=== PATIENT | male | born 1950 | race Caucasian/White ===

== ENCOUNTER 2016-11-29 18:04 | Emergency (ER) | payer OTHER ==
[~2016-11-29] VITALS: Ht 170.2 cm; Wt 113.0 kg
[~2016-11-29 18:04] MED LIST: AMITIZA 24 MCG24 MC1 PO; ASPIRIN325 PO; ATACAND8 MG PO; BUSPIRONE HCL10 MG PO; COZAAR 50 MG TA50 M2 PO; DEPO-TESTO200 MG/1 M IM; DILAUDID 2 MG TA2 MG PO; FISH OIL 1,0001 EAC7 PO; FISH OIL 1,001000 M2 PO; FLOMAX0.4 MG PO; FLONASE 0.05%50 MCG NASAL; FUROSEMIDE 20 M20 M1 PO; GABAPENTIN100 MG PO; GLUCOPHAGE500 MG PO; HALCION0.25 MG PO; HYDROCODONE-AP1 EAC6 PO; IMDUR 30 MG TAB30 M1 PO; IMITREX 50 MG T50 MG PO; LASIX 20 MG TAB20 MG PO; LASIX 40 MG TAB40 M2 PO; MELOXICAM7.5 MG PO; NEXIUM 40 MG CA40 M1 PO; NIACIN500 MG PO; NITROGLYCERIN0.4 MG SL; NORCO 5-325 TA1 EACH PO; POTASSIUM20 PO; PRAVACHOL 20 MG20 M1 PO; PRILOSEC 20 MG20 MG PO; PROAIR HFA8.5 GM IH; PROAIR RESPICL90 MCG IH; SPIRIVA18 MCG INH; SYMBICORT160 MCG/4. INH; TOPROL XL200 MG PO; TRAMADOL HCL50 MG PO; VITAMIN D-32000 UNIT PO; ZETIA10 MG PO; ZOCOR40 MG PO
[2016-11-29] MEDS ORDERED: NORCO 5-325 TA1 EACH PO (21:00)
== END 2016-11-29 21:10 | disposition home or self-care (01) ==
LOC: ER 18:04
DX: S80.02XA Contusion of left knee, initial encounter (principal); M19.90 Unspecified osteoarthritis, unspecified site; G47.30 Sleep apnea, unspecified; J44.9 Chronic obstructive pulmonary disease, unspecified; I50.9 Heart failure, unspecified; Z88.8 Allergy status to other drugs, medicaments and biological substances; W01.0XXA Fall on same level from slipping, tripping and stumbling without subsequent striking against object, initial encounter; Y93.89 Activity, other specified; Y92.096 Garden or yard of other non-institutional residence as the place of occurrence of the external cause; Y99.8 Other external cause status

== ENCOUNTER 2017-05-29 13:27 | Inpatient (IN) | payer OTHER ==
[~2017-05-29] VITALS: Ht 170.2 cm; Wt 105.7 kg
--- NOTE | ~2017-05-29 | S ---
[facility] [place] [address] SURGICAL PATH RPT PROCEDURE Name: MARIO ALBERTO CORREA Room #: 215-P DIS IN M.R.#: [id number] Admission: 05/29/17 Date of : 48 Discharge: 05/31/17 Report #: [id number] Path Case #: [id number] PATHOLOGY REPORT COLLECTION DATE: 05/31/2017 RECEIVED DATE: 06/02/2017 SUBMITTING PHYS: Dr. Naveen Terry OTHER PHYS: Dr. Li Cantu SPECIMEN(S) RECEIVED: A.Bx of gastritis B.Polyp at descending colon * * * * * * * * * * * * FINAL DIAGNOSIS: A. Bx of gastritis: - Gastric mucosa with mild reactive change. - An H. pylori immunostain is negative (Block A1; appropriately reactive control). B. Polyp at descending colon: - Tubular adenoma. - Negative for high grade dysplasia. PATHOLOGIST: Zeyad Morales M.D. REPORT ELECTRONICALLY SIGNED BY: Zeyad Morales M.D. DATE/TIME: 06/03/2017 09:40 * * * * * * * * * * * * GROSS PATHOLOGY: A. Received in formalin labeled "Mario Alberto Correa, BX of gastritis" and consists of 3 prince mucosal biopsies ranging in size from 0.1 cm-0.5 cm. They are entirely submitted as A1. B. Received in formalin labeled "Mario Alberto Correa, polyp at descending colon" and consists of 2 prince mucosal biopsies each averaging 0.3 cm. They are entirely submitted as B1. (MASON; 06/02/2017) CLINICAL HISTORY: Weight loss INITIAL CPT CODE(S): A; 31663, 05208 B; 17427 [facility] [address] [place] [address] SURGICAL PATH RPT PROCEDURE Name: MARIO ALBERTO CORREA Room #: 215-P DIS IN M.R.#: [id number] Admission: 05/29/17 Date of : 48 Discharge: 05/31/17 Report #: [id number] Path Case #: [id number] [address], [place] [address] Technical services performed by [facility] at [address] [place] [address], [facility] [address] [address]. [place] [address] PHONE: [phone] DIRECTOR: Alexi Mcelroy M.D. * * * END OF REPORT * * *
--- NOTE | ~2017-05-29 | P ---
[facility] [place] [address] PROCEDURE REPORT Name: CHELITA CORREA Room #: 215-P [facility] IN M.R.#: [id number] Admission: 05/29/17 Attend Phys: Naveen Terry MD Discharge: 05/31/17 Date of : 48 Report #: [id number] THIS REPORT FOR: //name// CC: Li Terry DATE OF SERVICE: 05/31/2017 PROCEDURE PERFORMED: Upper endoscopy with biopsies and esophageal dilation. HISTORY OF PRESENT ILLNESS: The patient is a 67-year-old male who was actually scheduled for an outpatient EGD and colonoscopy by myself yesterday; however, during the prep, began having significant nausea, vomiting as well as diarrhea and was evaluated in the Emergency Room. He was noted to be hypokalemic. He also had some chest pain and shortness of breath at that time. Cardiology has evaluated the patient and his cardiac workup is negative. Plan is for EGD and colonoscopy today. Reason for endoscopy is a history of anemia as well as weight loss. He apparently has lost approximately 25 pounds in the last few months without attempting to lose weight. He does report some bright red blood per rectum, but he has a known history of hemorrhoids. His last colonoscopy was 2 years ago, reportedly negative other than hemorrhoids and diverticulosis. He does report some dysphagia. DESCRIPTION OF PROCEDURE: The risks and benefits of the procedure were explained to the patient, those risks including but not limited to bleeding, perforation, the risk of sedation. He understood these risks and gave informed consent. Sedation was given using propofol and ketamine per anesthesia. Next, using a standard [employer] upper endoscope, the scope was placed in the patient's mouth and advanced under direct vision through the esophagus, stomach and into the second portion of the duodenum. The esophagus was normal throughout. The GE junction was normal. In the stomach, there was a mild erythema. No evidence of ulcerations or erosions. Biopsies were obtained to rule out H. pylori. The pylorus was normal and patent. The duodenal bulb, first and second portion were all normal. The scope was then brought back up to the patient's stomach. Savary guidewire was inserted through the scope, leaving the wire in place as the scope was then withdrawn. Next, a 48-Maldivian Savary dilation of the esophagus was then performed without difficulty. The wire and dilator removed. The scope was reintroduced into the patient's stomach. There was no evidence of mucosal tear after dilation. The scope was then withdrawn and the procedure terminated. The patient tolerated the procedure well. IMPRESSION: 1. Mild gastric erythema. 2. Otherwise, normal upper endoscopy. [address] [address] PROCEDURE REPORT Name: CHELITA CORREA Room #: 215-P [facility] IN M.R.#: [id number] Admission: 05/29/17 Attend Phys: Naveen Terry MD Discharge: 05/31/17 Date of : 48 Report #: [id number] RECOMMENDATIONS: 1. Await biopsy results. 2. Observe status post dilation. 3. We will proceed with colonoscopy next today. Thank you for allowing me to participate in his care. <ELECTRONICALLY SIGNED> By: Rudy Hercules MD 06/09/17 0922 1131 1206 Rudy Hercules MD /nt
--- NOTE | ~2017-05-29 | 2DMMODE ---
[facility] [address] [place] [address] 2 D/M-MODE ECHOCARDIOGRAM Name: MADELINECHELITASHERINE GONCALVES Room #: 215-P [facility] IN M.R.#: [id number] Admission: 05/29/17 Attend Phys: Naveen Terry, Discharge: Date of : 48 Date of Service: 05/30/17 1539 Report #: [id number] THIS REPORT FOR: //name// APPROVED REPORT Study performed: 05/30/2017 13:39:42 EXAM: Comprehensive 2D, Doppler, and color-flow Echocardiogram Patient Location: Bedside Room #: [facility] Status: routine BSA: 2.11 HR: 91 bpm BP: 131/71 mmHg Other Information Study Quality: Adequate Indications CAD Cardiomyopathy Chest Pain 2D Dimensions RVDd: 38.15 mm LVEF(%): 44.82 (>50%) IVSd: 9.36 (7-11mm) LVOT Diam: 21.95 (18-24mm) LVDd: 54.10 mm PWd: 9.78 (7-11mm) Ascending Ao: 30.94 (22-36mm) LVDs: 41.94 (25-40mm) Aortic Root: 39.89 mm IVC: 19.00 mm Gatica's LVEF: 44.82 % Volumes Left Atrial Volume (Systole) Single Plane 4CH: 62.32 mL Single Plane 2CH: 61.34 mL LA ESV Index: 33.00 mL/m2 Aortic Valve AoV Peak Froylan.: 1.38 m/s AO Peak Gr.: 7.67 mmHg LVOT Max P.75 mmHg LVOT Max V: 1.09 m/s LITZY Vmax: 2.97 cm2 Mitral Valve E/A Ratio: 1.1 [facility] [place] [address] [place] [address] 2 D/M-MODE ECHOCARDIOGRAM Name: CHELITA CORREA Room #: 215-[facility] IN ..#: [id number] Admission: 05/29/17 Attend Phys: Naveen Terry, Discharge: Date of : 48 Date of Service: 05/30/17 1539 Report #: [id number] MV Decel. Time: 210.24 ms MV E Max Froylan.: 0.91 m/s MV A Froylan.: 0.85 m/s MV PHT: 60.97 ms IVRT: 101.50 ms Pulmonary Valve PV Peak Froylan.: 1.10 m/s PV Peak Gr.: 4.83 mmHg Pulmonary Vein P Vein S: 0.46 m/s P Vein A: 0.32 m/s P Vein D: 0.42 m/s P Vein A Dur.: 120.0 msec P Vein S/D Ratio: 1.10 Tricuspid Valve TR Peak Froylan.: 2.40 m/s TR Peak Gr.: 22.97 mmHg PA Pressure: 28.00 mmHg Left Ventricle The left ventricle is normal size. Regional wall motion is not well visualized but grossly normal. There is normal left ventricular wall thickness. The left ventricular systolic function is normal. The left ventricular ejection fraction is within the normal range. LVEF is >55%. Grade II - pseudonormal filling dynamics. Right Ventricle The right ventricle is normal size. The right ventricular systolic function is normal. Atria Left atrium is at the upper limits of normal. Right atrium is at the upper limits of normal. Aortic Valve The aortic valve is normal in structure. No aortic regurgitation is present. There is no aortic valvular stenosis. Mitral Valve The mitral valve is normal in structure. Trace mitral regurgitation. No evidence of mitral valve stenosis. Tricuspid Valve The tricuspid valve is normal in structure. There is trace tricuspid regurgitation. Estimated PAP 28 mmHg. There [place] [address] 2 D/M-MODE ECHOCARDIOGRAM Name: CHELITA CORREA Room #: 215-P [facility] IN ..#: [id number] Admission: 05/29/17 Attend Phys: Naveen Terry, Discharge: Date of : 48 Date of Service: 05/30/17 1539 Report #: [id number] Pulmonic Valve The pulmonary valve is normal in structure. There is no pulmonic valvular regurgitation. Great Vessels The aortic root is normal in size. IVC is normal in size and collapses >50% with inspiration. Pericardium There is no pericardial effusion. <Conclusion> The left ventricular systolic function is normal. Regional wall motion is not well visualized but grossly normal. LVEF is >55%. Grade II - pseudonormal filling dynamics. The aortic valve is normal in structure. No aortic regurgitation or stenosis The mitral valve is normal in structure. Trace mitral regurgitation. There is trace tricuspid regurgitation. Estimated pulmonary artery pressure of 28 mmHg. There is no pericardial effusion. <ELECTRONICALLY SIGNED> By: Sachin Taylor MD, FACC 05/30/17 1539 1539 1539 Sachin Taylor MD, FACC /INF
--- NOTE | ~2017-05-29 | EKG ---
[address] [address] ELECTROCARDIOGRAM REPORT Name: CHELITA CORREA Room #: 215-P ADM IN M.R.#: [id number] Admission: 05/29/17 Attend Phys: Naveen Terry MD Discharge: Date of : 48 Report #: [id number] THIS REPORT FOR: //name// [facility] Test Date: 2017-05-30 Test Time: 12:41:27 Pat Name: CHELITA CORREA Department: Room: [facility] Gender: M Plastering Contractor: gracie : 1950 Requested By: Naveen Terry Order Number: [id number] MD: Sachin Taylor Measurements Intervals [place] Rate: 92 P: 23 WY: 200 QRS: 29 QRSD: 102 T: QT: 360 QTc: 446 Interpretive Statements Sinus rhythm Inferior infarct, age indeterminate Compared to ECG 05/29/2017 14:25:20 No significant changes Electronically Signed On 05-31-2017 12:59:37 [employer]OMOTIVE PAINT TECHNICIAN by Sachin Taylor [email or web address] <ELECTRONICALLY SIGNED> By: Sachin Taylor MD, [facility] 05/31/17 1259 1241 1241 Sachin Taylor MD, [facility] /EPI
--- NOTE | ~2017-05-29 | EKG ---
[address] [place] [address] ELECTROCARDIOGRAM REPORT Name: MADELINECHELITASHERINE GONCALVES Room #: 170-10 ADM IN M.R.#: [id number] Admission: 05/29/17 Attend Phys: Naveen Terry MD Discharge: Date of : 48 Report #: [id number] THIS REPORT FOR: //name// [facility] ED Test Date: 2017-05-29 Test Time: 14:25:20 Pat Name: CHELITA CORREA Department: Room: 170 Gender: M Snuff Blender: ELIZABETH : 1950 Requested By: Han Francis Order Number: [id number] MD: Sachin Taylor Measurements Intervals [place] Rate: 72 P: 19 [place]: 188 QRS: 29 QRSD: 103 T: -5 QT: 431 QTc: 472 Interpretive Statements Sinus rhythm Inferior infarct, old Compared to ECG 04/27/2015 07:59:53 Atrial fibrillation no longer present Ventricular premature complex(es) no longer present Electronically Signed On 05-30-2017 7:55:49 [employer]USSET MAKER by Sachin Taylor [email or web address] <ELECTRONICALLY SIGNED> By: Sachin Taylor MD, [facility] 05/30/17 0755 1425 1425 Sachin Taylor MD, [facility] /EPI
--- NOTE | ~2017-05-29 | P ---
[facility] [place] [address] PROCEDURE REPORT Name: CHELITA CORREA Room #: 215-P [facility] IN M.R.#: [id number] Admission: 05/29/17 Attend Phys: Naveen Terry MD Discharge: 05/31/17 Date of : 48 Report #: [id number] THIS REPORT FOR: //name// CC: Li Terry DATE OF SERVICE: 05/31/2017 PROCEDURE PERFORMED: Colonoscopy with biopsies. HISTORY OF PRESENT ILLNESS: The patient is a 67-year-old male, scheduled for EGD and colonoscopy yesterday. During prep had nausea, vomiting, diarrhea, and chest pain with shortness of breath, was admitted through the Emergency Room. He was hypokalemic and his electrolytes have now been stabilized after potassium replacement. He has a history of low crampy abdominal pain, history of bright red blood per rectum at times. Last colonoscopy reportedly 2 years ago, hemorrhoids with diverticulosis. Upper endoscopy was just performed today, which was essentially negative. He also has had weight loss. DESCRIPTION OF PROCEDURE: The risks and benefits of the procedure were explained to the patient, those risks including but not limited to bleeding, perforation, the risk of sedation. He understood these risks and gave informed consent. Sedation was given using propofol and ketamine per Anesthesia. Next, a digital rectal exam was initially performed, which showed medium to large size external hemorrhoids, nonbleeding. Next, using a standard Fujinon colonoscope, the scope was placed in the patient's anus and advanced under direct vision to the cecum. The overall prep was poor in several areas. Multiple washings and aspirations were performed. Most areas, however, were fairly well visualized. The cecum and ileocecal valve normal in appearance. The ascending and transverse colon were normal. In the descending colon, a 4 mm sessile polyp was noted. This was removed with cold forceps. Multiple diverticula were noted in the descending and sigmoid colon, no evidence of inflammation or bleeding. The rectal mucosa was normal. On retroflexion, small nonbleeding internal hemorrhoids were also noted. The scope was then withdrawn and the procedure terminated. The patient tolerated the procedure well. IMPRESSION: 1. Small colon polyp. 2. Left-sided diverticulosis without inflammation or bleeding. 3. Internal and external hemorrhoids. No active bleeding at this time. RECOMMENDATIONS: 1. Await biopsy results. 2. The patient has a history of mild anemia. On admission yesterday, his hemoglobin was 12.6, today is 11.1. There are no signs of bleeding or stigmata [address] [address] PROCEDURE REPORT Name: CHELITA CORREA Room #: 215-P [facility] IN M.R.#: [id number] Admission: 05/29/17 Attend Phys: Naveen Terry MD Discharge: 05/31/17 Date of : 48 Report #: [id number] of bleeding on EGD or colonoscopy. At this point, would consider Hemoccult testing of stools. If positive, could consider an M2 capsule of the small bowel in the future. 3. As far as the low abdominal pain and weight loss, there were no obvious findings on EGD or colonoscopy today. If this continues, may want to consider a CT scan of his abdomen and pelvis. Thank you for allowing me to participate in his care. <ELECTRONICALLY SIGNED> By: Rudy Hercules MD 06/09/17 0922 1135 1203 Rudy Hercules MD /nt
[~2017-05-29 13:27] MED LIST changes: +ONDANSETRON ODT8 MG PO; +PACERONE 200 M200 M1 PO; +SAVAYSA60 MG PO
[2017-05-29 13:38] VITALS: BP 157/88
[2017-05-29 15:22] LABS: BASOPHILS 0.5 % (0.0-2.0); EOSINOPHILS 0.3 % (0.0-3.0); HEMATOCRIT 36.7 % (42.0-52.0); HEMOGLOBIN 12.6 gm/dL (14.0-18.0); LYMPHOCYTES 5.4 % (24.0-44.0); MCH 29.2 pg (26.0-34.0); MCHC 34.5 g/dL (28.0-37.0); MCV 84.6 fL (80.0-100.0); MONOCYTES 3.6 % (1.0-8.0); PLATELET COUNT 229 thou/uL (150-400); POLYS 90.2 % (36.0-66.0); RBC 4.34 mil/uL (4.50-6.00); RDW 15.5 % (10.5-14.5); WBC 8.9 thou/uL (4.0-11.0)
[2017-05-29 15:32] LABS: ANION GAP 13 mmol/L (7-16); BUN 11 mg/dL (7-18); CALCIUM 10.2 mg/dL (8.5-10.1); CHLORIDE 101 mmol/L (98-107); CO2 28 mmol/L (21-32); CREATININE 1.6 mg/dL (0.7-1.3); GLUCOSE 149 mg/dL (74-106); SODIUM 142 mmol/L (136-145)
[2017-05-29 15:39] LABS: POTASSIUM 2.6 mmol/L (3.5-5.1)
[2017-05-29 15:41] LABS: ALBUMIN 3.4 g/dL (3.4-5.0); LIPASE 176 U/L (73-393); SGOT 18 U/L (15-37); SGPT 20 U/L (30-65); TOTAL BILIRUBIN 0.4 mg/dL (<0.1-1.0); TOTAL PROTEIN 7.8 g/dL (6.4-8.2); TROPONIN-I < 0.04 ng/mL (<0.06)
[2017-05-30 04:59] LABS: BASOPHILS 0.7 % (0.0-2.0); EOSINOPHILS 1.3 % (0.0-3.0); HEMATOCRIT 32.9 % (42.0-52.0); HEMOGLOBIN 11.1 gm/dL (14.0-18.0); LYMPHOCYTES 22.7 % (24.0-44.0); MCH 28.7 pg (26.0-34.0); MCHC 33.8 g/dL (28.0-37.0); MCV 85.2 fL (80.0-100.0); PLATELET COUNT 198 thou/uL (150-400); POLYS 67.3 % (36.0-66.0); RBC 3.86 mil/uL (4.50-6.00); RDW 15.6 % (10.5-14.5); WBC 5.9 thou/uL (4.0-11.0)
[2017-05-30 05:05] LABS: CREATININE 1.6 mg/dL (0.7-1.3); MAGNESIUM 1.3 mg/dL (1.8-2.4)
[2017-05-30 05:07] LABS: POTASSIUM 2.6 mmol/L (3.5-5.1)
[2017-05-30 09:04] VITALS: BP 128/68
[2017-05-30 11:21] VITALS: BP 139/76
[2017-05-30 11:42] LABS: CALCIUM 8.9 mg/dL (8.5-10.1); CREATININE 1.7 mg/dL (0.7-1.3); MAGNESIUM 1.5 mg/dL (1.8-2.4); TROPONIN-I 0.04 ng/mL (<0.06)
[2017-05-30 11:49] LABS: POTASSIUM 2.2 mmol/L (3.5-5.1)
[2017-05-30 12:20] VITALS: BP 131/71
[2017-05-30 16:00] VITALS: BP 120/60
[2017-05-30 19:48] VITALS: BP 140/86
[2017-05-30 22:02] LABS: MAGNESIUM 1.3 mg/dL (1.8-2.4)
[2017-05-30 22:05] LABS: POTASSIUM 3.3 mmol/L (3.5-5.1)
[2017-05-31 00:05] VITALS: BP 146/89
[2017-05-31 04:26] VITALS: BP 170/98
[2017-05-31 06:49] LABS: CALCIUM 9.1 mg/dL (8.5-10.1); CREATININE 1.4 mg/dL (0.7-1.3); MAGNESIUM 1.8 mg/dL (1.8-2.4); POTASSIUM 3.9 mmol/L (3.5-5.1)
[2017-05-31 07:40] VITALS: BP 154/93
[2017-05-31 12:09] VITALS: BP 152/79
[2017-05-31 14:17] VITALS: BP 152/79
== END 2017-05-31 14:44 | disposition home or self-care (01) | DRG 683 ==
LOC: ER 13:27 → 2N 16:46 → EROBS 16:46 → 2N 05-30 11:47
PROVIDERS: Emergency Medicine; Internal Medicine; Nurse Practitioner; Nurse Practitioner Acute Care
PROC: 0DB68ZX Excision of Stomach, Via Natural or Artificial Opening Endoscopic, Diagnostic (ICD-10-PCS; principal; 2017-05-31)
PROC: 0DBM8ZX Excision of Descending Colon, Via Natural or Artificial Opening Endoscopic, Diagnostic (ICD-10-PCS; 2017-05-31)
PROC: 0D758ZZ Dilation of Esophagus, Via Natural or Artificial Opening Endoscopic (ICD-10-PCS; 2017-05-31)
DX: N17.9 Acute kidney failure, unspecified (principal); I13.0 Hypertensive heart and chronic kidney disease with heart failure and stage 1 through stage 4 chronic kidney disease, or unspecified chronic kidney disease; M94.0 Chondrocostal junction syndrome [Tietze]; I50.9 Heart failure, unspecified; J44.9 Chronic obstructive pulmonary disease, unspecified; K21.9 Gastro-esophageal reflux disease without esophagitis; E87.6 Hypokalemia; I25.10 Atherosclerotic heart disease of native coronary artery without angina pectoris; G47.33 Obstructive sleep apnea (adult) (pediatric); E66.9 Obesity, unspecified; M19.90 Unspecified osteoarthritis, unspecified site; K63.5 Polyp of colon; K57.90 Diverticulosis of intestine, part unspecified, without perforation or abscess without bleeding; K64.8 Other hemorrhoids; K64.4 Residual hemorrhoidal skin tags; I25.5 Ischemic cardiomyopathy; E78.00 Pure hypercholesterolemia, unspecified; I48.0 Paroxysmal atrial fibrillation; N18.9 Chronic kidney disease, unspecified; E11.22 Type 2 diabetes mellitus with diabetic chronic kidney disease; E83.42 Hypomagnesemia; Z90.49 Acquired absence of other specified parts of digestive tract; Z79.899 Other long term (current) drug therapy; I25.2 Old myocardial infarction; Z95.5 Presence of coronary angioplasty implant and graft; Z88.8 Allergy status to other drugs, medicaments and biological substances; Z87.891 Personal history of nicotine dependence; Z68.36 Body mass index [BMI] 36.0-36.9, adult; Z98.1 Arthrodesis status
CPT/HCPCS: 10081; 62110; 62900; 70005